=== PATIENT | male | born 1950 | race Two or more races ===

== ENCOUNTER 2019-07-21 12:24 | Outpatient (CLI) | payer OTHER | END 2019-07-21 14:30 | disposition home or self-care (01) | LOC: LAB 12:24 | DX: R97.20 Elevated prostate specific antigen [PSA] (principal) ==

== ENCOUNTER 2019-08-23 08:03 | Outpatient (CLI) | payer OTHER | END 2019-08-23 08:12 | disposition home or self-care (01) | LOC: SONOGRAMA 08:03 | DX: C61 Malignant neoplasm of prostate (principal); R97.20 Elevated prostate specific antigen [PSA] ==

== ENCOUNTER → 2019-09-25 11:32 | Outpatient (CLI) | payer OTHER | END | disposition home or self-care (01) | LOC: LAB 11:32 | DX: C61 Malignant neoplasm of prostate (principal) ==

== ENCOUNTER → 2019-09-26 | Outpatient (CLI) | payer OTHER | END | disposition home or self-care (01) | LOC: TOM 07:15 | DX: R97.20 Elevated prostate specific antigen [PSA] (principal); C61 Malignant neoplasm of prostate; R31.1 Benign essential microscopic hematuria | CPT/HCPCS: 74178; Q9965 ==

== ENCOUNTER 2019-10-18 08:17 | Outpatient (CLI) | payer OTHER | END 2019-10-18 08:25 | disposition home or self-care (01) | LOC: NUCLEAR 08:17 | DX: C61 Malignant neoplasm of prostate (principal) | CPT/HCPCS: 78803; A9503 ==

== ENCOUNTER 2019-12-05 10:41 | Outpatient (CLI) | payer OTHER | END 2019-12-05 10:48 | disposition home or self-care (01) | LOC: LAB 10:41 | DX: N30.00 Acute cystitis without hematuria (principal); B96.29 Other Escherichia coli [E. coli] as the cause of diseases classified elsewhere ==